=== PATIENT | male | born 1970 | race African-American/Black ===

== ENCOUNTER 2018-08-03 16:28 | Emergency (ER) | payer MEDICAID ==
[~2018-08-03] VITALS: Ht 170.2 cm; Wt 77.0 kg
[2018-08-03] MEDS ORDERED: KETOROLAC 60MG/2ML VIAL IM ONE (18:30)
[2018-08-03 18:49] VITALS: BP 114/68
== END 2018-08-03 19:01 | disposition home or self-care (01) ==
LOC: ER 16:28
DX: R51 Headache (principal); M54.5 Low back pain; M54.2 Cervicalgia; M79.10 Myalgia, unspecified site; F12.10 Cannabis abuse, uncomplicated; Z87.828 Personal history of other (healed) physical injury and trauma; V00.831A Fall from motorized mobility scooter, initial encounter; Y93.89 Activity, other specified; Y92.89 Other specified places as the place of occurrence of the external cause
CPT/HCPCS: 96372; 99283; J1885